=== PATIENT | male | born 1960 | race African-American/Black ===

== ENCOUNTER 2017-04-12 12:24 | Emergency (ER) | payer BC ==
[2017-04-12 12:30] VITALS: BP 120/85
[2017-04-12] MEDS ORDERED: NORCO 10/325 PO ONE (14:07)
[2017-04-12] MEDS ORDERED: TORADOL IM ONE (14:07)
--- NOTE | 2017-04-12 14:10 | Emergency Department Report ---
ED Back Pain/Injury HPI - General Chief Complaint: Back Pain/Injury Stated Complaint: BACK/NECK PAIN Time Seen by Provider: 04/12/17 13:27 Source: patient Limitations: No Limitations - History of Present Illness Initial Comments: 56-year-old male past medical history sciatica, cervical radiculopathy, cardiac arrhythmia, presents with complaint of acute on chronic neck and lower back pain. Patient denies saddle paresthesias denies bladder or bowel incontinence. Patient is fully lucid awake alert and oriented 3. Is ambulatory without assistance. Denies any direct trauma to back or neck. Denies fevers or chills nausea or vomiting. States that these symptoms are consistent with his previous history of chronic back pain. states he has pain consistent with sciatica radiating from his lower back to his right buttock. States he took his prescription for Ultram and Robaxin with minimal relief of his pain at home last night MD Complaint: back pain Onset/Timin -: days(s) Place: home, work, street Radiation: right leg Severity scale (0 -10): 8 Quality: sharp, aching Consistency: intermittent Improves With: immobilization, medication Worsens With: none Context: turning/twisting, bending Associated Symptoms: denies other symptoms - Related Data Home Medications Medication Instructions Recorded Confirmed Last Taken Lisinopril [Zestril] 40 mg PO QDAY 07/09/13 08/20/14 08/19/14 amLODIPine [Norvasc] 5 mg PO DAILY 07/09/13 08/20/14 08/20/14 Previous Rx's Medication Instructions Recorded Last Taken Type Methocarbamol [Robaxin] 750 mg PO BID #14 tab 08/21/14 Unknown Rx Oxycodone HCl/Acetaminophen 1 each PO TID PRN #14 tablet 08/21/14 Unknown Rx [Percocet 7.5-325 mg] Amoxicillin 500 mg PO TID #21 capsule 03/01/16 Unknown Rx Carisoprodol [Soma] 350 mg PO TID PRN #8 tablet 04/12/17 Unknown Rx Naproxen 500 mg PO BID PRN #30 tablet 04/12/17 Unknown Rx Allergies Allergy/AdvReac Type Severity Reaction Status Date / Time No Known Allergies Allergy Verified 04/12/17 12:27 ED Review of Systems ROS: Stated complaint: BACK/NECK PAIN Other details as noted in HPI Constitutional: denies: chills, fever Eyes: denies: eye pain, eye discharge, vision change ENT: denies: ear pain, throat pain Respiratory: denies: cough, shortness of breath, wheezing Cardiovascular: denies: chest pain, palpitations Endocrine: no symptoms reported Gastrointestinal: denies: abdominal pain, nausea, diarrhea Genitourinary: denies: urgency, dysuria Musculoskeletal: back pain (hx of chronic neck and back pain). denies: joint swelling, arthralgia Skin: denies: rash, lesions Neurological: denies: headache, weakness, paresthesias Psychiatric: denies: anxiety, depression Hematological/Lymphatic: denies: easy bleeding, easy bruising ED Past Medical Hx - Past Medical History Hx Hypertension: Yes Additional medical history: sciatica. cardiac arrhythmia - Surgical History Hx Cholecystectomy: Yes (1999) Additional Surgical History: vastectomy,. rotator cuff 2009 - Social History Smoking Status: Current Every Day Smoker Substance Use Type: Alcohol - Medications Home Medications: Home Medications Medication Instructions Recorded Confirmed Last Taken Type Lisinopril [Zestril] 40 mg PO QDAY 07/09/13 08/20/14 08/19/14 History amLODIPine [Norvasc] 5 mg PO DAILY 07/09/13 08/20/14 08/20/14 History Methocarbamol [Robaxin] 750 mg PO BID #14 tab 08/21/14 Unknown Rx Oxycodone HCl/Acetaminophen 1 each PO TID PRN #14 tablet 08/21/14 Unknown Rx [Percocet 7.5-325 mg] Amoxicillin 500 mg PO TID #21 capsule 03/01/16 Unknown Rx Carisoprodol [Soma] 350 mg PO TID PRN #8 tablet 04/12/17 Unknown Rx Naproxen 500 mg PO BID PRN #30 tablet 04/12/17 Unknown Rx ED Physical Exam - General Limitations: No Limitations General appearance: alert, in no apparent distress - Head Head exam: Present: atraumatic, normocephalic - Eye Eye exam: Present: normal appearance, PERRL, EOMI - ENT ENT exam: Present: mucous membranes moist - Neck Neck exam: Present: normal inspection - Respiratory Respiratory exam: Present: normal lung sounds bilaterally. Absent: respiratory distress - Cardiovascular Cardiovascular Exam: Present: regular rate, normal rhythm. Absent: systolic murmur, diastolic murmur, rubs, gallop - GI/Abdominal GI/Abdominal exam: Present: soft, normal bowel sounds - Rectal Rectal exam: Present: deferred - Extremities Exam Extremities exam: Present: normal inspection - Back Exam Back exam: Present: normal inspection, full ROM (back flexion and extension intact no CVA tenderness) - Expanded Back Exam Expanded Back exam: Positive Straight Leg Raise: Right (30 degrees) - Neurological Exam Neurological exam: Present: alert, oriented X3, CN II-XII intact, normal gait - Psychiatric Psychiatric exam: Present: normal affect, normal mood - Skin Skin exam: Present: warm, dry, intact, normal color. Absent: rash ED Course Vital Signs 04/12/17 12:27 Temperature 97.5 F L Pulse Rate 79 Respiratory 18 Rate Blood Pressure 120/85 O2 Sat by Pulse 100 Oximetry ED Medical Decision Making - Medical Decision Making A/P: Acute on chronic neck and back pain secondary to degenerative spinal disease 1-short course of naproxen and Soma 2-follow-up with primary care and orthopedics 3-patient has no clinical signs of cauda equina range of motion fully intact all extremities strength 5 out of 5 all extremities. No reports of bladder or bowel incontinence, patient is fully ambulatory without assistance. I advised him to return to the ED [facility] for any signs of paralysis or severe paresthesias. Patient stated he understood my instructions Critical care attestation.: If time is entered above; I have spent that time in minutes in the direct care of this critically ill patient, excluding procedure time. ED Disposition Clinical Impression: Chronic neck and back pain Chronic back pain Qualifiers: Back pain location: low back pain Back pain laterality: right Sciatica presence : with sciatica Sciatica laterality: sciatica of right side Qualified Code(s): M54.41 - Lumbago with sciatica, right side; G89.29 - Other chronic pain; G89.29 - Other chronic pain Disposition: - TO HOME OR SELFCARE Is pt being admited?: No Does the pt Need Aspirin: No Condition: Stable Instructions: Sciatica (ED), Cervical Radiculopathy (ED) Prescriptions: Carisoprodol [Soma] 350 mg PO TID PRN #8 tablet PRN Reason: Muscle Spasm Naproxen 500 mg PO BID PRN #30 tablet PRN Reason: Pain Referrals: [facility] [Provider Group] - 3-5 Days Forms: Work/School Release Form(ED) Time of Disposition: 15:29
== END 2017-04-12 15:54 | disposition home or self-care (01) ==
LOC: ED 12:24
DX: M54.41 Lumbago with sciatica, right side (principal); M54.2 Cervicalgia; G89.29 Other chronic pain; F17.200 Nicotine dependence, unspecified, uncomplicated; I10 Essential (primary) hypertension; Z90.49 Acquired absence of other specified parts of digestive tract; Z90.79 Acquired absence of other genital organ(s)
CPT/HCPCS: 96372; 99282; J1885

== ENCOUNTER 2017-05-03 16:02 | Emergency (ER) | payer BC ==
[2017-05-03 17:27] VITALS: BP 119/77
--- NOTE | 2017-05-03 17:42 | Emergency Department Report ---
ED ENT HPI - General Chief complaint: Upper Respiratory Infection Stated complaint: SINUS INFECTION Time Seen by Provider: 05/03/17 17:37 Source: patient Mode of arrival: Ambulatory Limitations: No Limitations - History of Present Illness Initial comments: 56-year-old male past medical history sciatica presents with complaint of sinus discomfort and congestion for several days. Patient states he has sinus discharge clear in consistency also complaining of right-sided sinus pressure. Denies fevers chills nausea vomiting. States he has some intermittent mild throat discomfort. Feels that his sinuses are very congested. Denies earache. Patient awake alert and oriented 3 not in acute distress nontoxic appearing. Onset/Timin -: days(s) Location: nose Severity: moderate Quality: aching Consistency: constant Improves with: none Worsens with: none - Related Data Home Medications Medication Instructions Recorded Confirmed Last Taken Lisinopril [Zestril] 40 mg PO QDAY 07/09/13 08/20/14 08/19/14 amLODIPine [Norvasc] 5 mg PO DAILY 07/09/13 08/20/14 08/20/14 Previous Rx's Medication Instructions Recorded Last Taken Type Methocarbamol [Robaxin] 750 mg PO BID #14 tab 08/21/14 Unknown Rx Oxycodone HCl/Acetaminophen 1 each PO TID PRN #14 tablet 08/21/14 Unknown Rx [Percocet 7.5-325 mg] Amoxicillin 500 mg PO TID #21 capsule 03/01/16 Unknown Rx Carisoprodol [Soma] 350 mg PO TID PRN #8 tablet 04/12/17 Unknown Rx Naproxen 500 mg PO BID PRN #30 tablet 04/12/17 Unknown Rx Amoxicillin/Potassium Clav 1 each PO BID #14 tablet 05/03/17 Unknown Rx [Augmentin 875-125 Tablet] Cetirizine HCl [ZyrTEC] 10 mg PO QDAY PRN #1 bottle 05/03/17 Unknown Rx Fluticasone [Flonase] 1 spray NS QDAY PRN #1 bottle 05/03/17 Unknown Rx Ibuprofen [Motrin] 800 mg PO Q8HR PRN #30 tablet 05/03/17 Unknown Rx Allergies Allergy/AdvReac Type Severity Reaction Status Date / Time No Known Allergies Allergy Verified 04/12/17 12:27 ED Dental HPI - General Chief complaint: Upper Respiratory Infection Stated complaint: SINUS INFECTION Time Seen by Provider: 05/03/17 17:37 Source: patient Mode of arrival: Ambulatory Limitations: No Limitations - Related Data Home Medications Medication Instructions Recorded Confirmed Last Taken Lisinopril [Zestril] 40 mg PO QDAY 07/09/13 08/20/14 08/19/14 amLODIPine [Norvasc] 5 mg PO DAILY 07/09/13 08/20/14 08/20/14 Previous Rx's Medication Instructions Recorded Last Taken Type Methocarbamol [Robaxin] 750 mg PO BID #14 tab 08/21/14 Unknown Rx Oxycodone HCl/Acetaminophen 1 each PO TID PRN #14 tablet 08/21/14 Unknown Rx [Percocet 7.5-325 mg] Amoxicillin 500 mg PO TID #21 capsule 03/01/16 Unknown Rx Carisoprodol [Soma] 350 mg PO TID PRN #8 tablet 04/12/17 Unknown Rx Naproxen 500 mg PO BID PRN #30 tablet 04/12/17 Unknown Rx Amoxicillin/Potassium Clav 1 each PO BID #14 tablet 05/03/17 Unknown Rx [Augmentin 875-125 Tablet] Cetirizine HCl [ZyrTEC] 10 mg PO QDAY PRN #1 bottle 05/03/17 Unknown Rx Fluticasone [Flonase] 1 spray NS QDAY PRN #1 bottle 05/03/17 Unknown Rx Ibuprofen [Motrin] 800 mg PO Q8HR PRN #30 tablet 05/03/17 Unknown Rx Allergies Allergy/AdvReac Type Severity Reaction Status Date / Time No Known Allergies Allergy Verified 04/12/17 12:27 ED Review of Systems ROS: Stated complaint: SINUS INFECTION Other details as noted in HPI Constitutional: denies: chills, fever Eyes: denies: eye pain, eye discharge, vision change ENT: congestion, other. denies: ear pain, throat pain Respiratory: denies: cough, shortness of breath, wheezing Cardiovascular: denies: chest pain, palpitations Endocrine: no symptoms reported Gastrointestinal: denies: abdominal pain, nausea, diarrhea Genitourinary: denies: urgency, dysuria Musculoskeletal: denies: back pain, joint swelling, arthralgia Skin: denies: rash, lesions Neurological: denies: headache, weakness, paresthesias Psychiatric: denies: anxiety, depression Hematological/Lymphatic: denies: easy bleeding, easy bruising ED Past Medical Hx - Past Medical History Hx Hypertension: Yes Additional medical history: sciatica. cardiac arrhythmia - Surgical History Hx Cholecystectomy: Yes (1999) Additional Surgical History: vastectomy,. rotator cuff 2009 - Social History Smoking Status: Never Smoker Substance Use Type: None - Medications Home Medications: Home Medications Medication Instructions Recorded Confirmed Last Taken Type Lisinopril [Zestril] 40 mg PO QDAY 07/09/13 08/20/14 08/19/14 History amLODIPine [Norvasc] 5 mg PO DAILY 07/09/13 08/20/14 08/20/14 History Methocarbamol [Robaxin] 750 mg PO BID #14 tab 08/21/14 Unknown Rx Oxycodone HCl/Acetaminophen 1 each PO TID PRN #14 tablet 08/21/14 Unknown Rx [Percocet 7.5-325 mg] Amoxicillin 500 mg PO TID #21 capsule 03/01/16 Unknown Rx Carisoprodol [Soma] 350 mg PO TID PRN #8 tablet 04/12/17 Unknown Rx Naproxen 500 mg PO BID PRN #30 tablet 04/12/17 Unknown Rx Amoxicillin/Potassium Clav 1 each PO BID #14 tablet 05/03/17 Unknown Rx [Augmentin 875-125 Tablet] Cetirizine HCl [ZyrTEC] 10 mg PO QDAY PRN #1 bottle 05/03/17 Unknown Rx Fluticasone [Flonase] 1 spray NS QDAY PRN #1 bottle 05/03/17 Unknown Rx Ibuprofen [Motrin] 800 mg PO Q8HR PRN #30 tablet 05/03/17 Unknown Rx ED Physical Exam - General Limitations: No Limitations ED Course Vital Signs 05/03/17 17:25 Temperature 98 F Pulse Rate 74 Respiratory 18 Rate Blood Pressure 119/77 O2 Sat by Pulse 100 Oximetry ED Medical Decision Making - Medical Decision Making A/P: Acute Sinusitis 1-empiric course of Augmentin, Flonase, Zyrtec, Motrin when necessary 2-follow-up with primary care and ENT 3-I advised patient to return to the ED for any persistent or worsened symptoms or fever or chills and nausea and vomiting with inability to tolerate by mouth. Patient stated he understood my instructions 4- Critical care attestation.: If time is entered above; I have spent that time in minutes in the direct care of this critically ill patient, excluding procedure time. ED Disposition Clinical Impression: Sinusitis, acute Qualifiers: Sinusitis location: frontal Recurrence: non-recurrent Qualified Code(s): J01.10 - Acute frontal sinusitis, unspecified Disposition: TO HOME OR SELFCARE Is pt being admited?: No Does the pt Need Aspirin: No Condition: Stable Instructions: Sinusitis (ED) Prescriptions: Amoxicillin/Potassium Clav [Augmentin 875-125 Tablet] 1 each PO BID #14 tablet Cetirizine HCl [ZyrTEC] 10 mg PO QDAY PRN #1 bottle PRN Reason: Congestion Fluticasone [Flonase] 1 spray NS QDAY PRN #1 bottle PRN Reason: Congestion Ibuprofen [Motrin] 800 mg PO Q8HR PRN #30 tablet PRN Reason: Pain Referrals: HOME DIAZ MD [Staff Physician] - 3-5 Days [facility] [Outside] - 3-5 Days [facility] [Outside] - 3-5 Days Time of Disposition: 17:41
== END 2017-05-03 17:59 | disposition home or self-care (01) ==
LOC: ED 16:02
DX: J01.90 Acute sinusitis, unspecified (principal); I10 Essential (primary) hypertension
CPT/HCPCS: 99282

== ENCOUNTER 2017-11-21 14:27 | Outpatient (CLI) | payer BC ==
[2017-11-21 14:41] LABS: Hematocrit 41.3 % (35.5-45.6); Hemoglobin 13.7 gm/dl (11.8-15.2); Mean Corpuscular HGB Conc 33 % (32-34); Mean Corpuscular Hemoglobin 31 pg (28-32); Mean Corpuscular Volume 92 fl (84-94); Platelet Count 279 K/mm3 (140-440); Red Cell Distribution Width 14.2 % (13.2-15.2)
[2017-11-21 15:10] LABS: Alanine Aminotransferase 13 units/L (7-56); Albumin 4.5 g/dL (3.9-5); BUN/Creatinine Ratio 14; Blood Urea Nitrogen 13 mg/dL (9-20); Calcium 9.2 mg/dL (8.4-10.2); Chol/HDL Ratio 2.45 %; HDL Cholesterol 62 mg/dL (40-59); Hemolysis Index 2; LDL Cholesterol,Direct 87 mg/dL (50-130)
== END 2017-11-21 14:28 | disposition home or self-care (01) ==
LOC: LAB 14:27
PROVIDERS: ATTEND Internal Medicine
DX: I10 Essential (primary) hypertension (principal); E78.5 Hyperlipidemia, unspecified
CPT/HCPCS: 36415; 80053; 80061; 85027

== ENCOUNTER 2018-08-03 20:31 | Emergency (ER) | payer BC ==
[2018-08-03 20:40] VITALS: BP 143/84
--- NOTE | 2018-08-03 20:49 | Emergency Department Report ---
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 The patient presents to the emergency room with a complaint of dental pain, over tooth #3. The patient has a chronically fractured tooth, saw a dentist a few months ago, for pain, which had subsequently resolved. He presents with a recurrence of throbbing burning aching sharp pain over tooth #3. This pain moves into the maxillary area of the face. It increases with hot, cold, chewing. No other complaints. Of note, patient taking tramadol at home, prescribed by his physician, 50 mg, every 8 hours, with superimposed ibuprofen, and he reports inadequate analgesia at this time. MD complaint: tooth pain -: Gradual, days(s) Location: tooth # (3) Severity: moderate Quality: aching Consistency: intermittent Improves with: other Worsens with: other Context- Dental: other Associated Symptoms: toothache. denies: fever, cough, pain with swallowing, sore throat, tinnitus, hearing loss, discharge from ear, rhinorrhea - Related Data Home Medications Medication Instructions Recorded Confirmed Last Taken Lisinopril [Zestril] 40 mg PO QDAY 07/09/13 08/20/14 08/19/14 amLODIPine [Norvasc] 5 mg PO DAILY 07/09/13 08/20/14 08/20/14 Previous Rx's Medication Instructions Recorded Last Taken Type Methocarbamol [Robaxin] 750 mg PO BID #14 tab 08/21/14 Unknown Rx Oxycodone HCl/Acetaminophen 1 each PO TID PRN #14 tablet 08/21/14 Unknown Rx [Percocet 7.5-325 mg] Amoxicillin 500 mg PO TID #21 capsule 03/01/16 Unknown Rx Carisoprodol [Soma] 350 mg PO TID PRN #8 tablet 04/12/17 Unknown Rx Naproxen 500 mg PO BID PRN #30 tablet 04/12/17 Unknown Rx Amoxicillin/Potassium Clav 1 each PO BID #14 tablet 05/03/17 Unknown Rx [Augmentin 875-125 Tablet] Cetirizine HCl [ZyrTEC] 10 mg PO QDAY PRN #1 bottle 05/03/17 Unknown Rx Fluticasone [Flonase] 1 spray NS QDAY PRN #1 bottle 05/03/17 Unknown Rx Ibuprofen [Motrin] 800 mg PO Q8HR PRN #30 tablet 05/03/17 Unknown Rx traMADol [Ultram 50 MG tab] 50 mg PO Q8HR PRN #20 tablet 11/30/17 Unknown Rx Tramadol HCl [Ultram] 50 mg PO TID #90 tablet 03/01/18 Unknown Rx Chlorhexidine Mouthwash [Peridex] 15 ml MM BID #1 bottle 08/03/18 Unknown Rx Ibuprofen [Motrin] 600 mg PO Q8H PRN #20 tablet 08/03/18 Unknown Rx oxyCODONE /ACETAMINOPHEN [Percocet 1 tab PO Q6HR PRN #6 tablet 08/03/18 Unknown Rx 5/325] Allergies Allergy/AdvReac Type Severity Reaction Status Date / Time No Known Allergies Allergy Verified 03/01/18 15:40 ED Dental HPI - General Chief complaint: Dental/Oral Stated complaint: TOOTHACHE Time Seen by Provider: 08/03/18 20:49 Source: patient Mode of arrival: Ambulatory Limitations: No Limitations - Related Data Home Medications Medication Instructions Recorded Confirmed Last Taken Lisinopril [Zestril] 40 mg PO QDAY 07/09/13 08/20/14 08/19/14 amLODIPine [Norvasc] 5 mg PO DAILY 07/09/13 08/20/14 08/20/14 Previous Rx's Medication Instructions Recorded Last Taken Type Methocarbamol [Robaxin] 750 mg PO BID #14 tab 08/21/14 Unknown Rx Oxycodone HCl/Acetaminophen 1 each PO TID PRN #14 tablet 08/21/14 Unknown Rx [Percocet 7.5-325 mg] Amoxicillin 500 mg PO TID #21 capsule 03/01/16 Unknown Rx Carisoprodol [Soma] 350 mg PO TID PRN #8 tablet 04/12/17 Unknown Rx Naproxen 500 mg PO BID PRN #30 tablet 04/12/17 Unknown Rx Amoxicillin/Potassium Clav 1 each PO BID #14 tablet 05/03/17 Unknown Rx [Augmentin 875-125 Tablet] Cetirizine HCl [ZyrTEC] 10 mg PO QDAY PRN #1 bottle 05/03/17 Unknown Rx Fluticasone [Flonase] 1 spray NS QDAY PRN #1 bottle 05/03/17 Unknown Rx Ibuprofen [Motrin] 800 mg PO Q8HR PRN #30 tablet 05/03/17 Unknown Rx traMADol [Ultram 50 MG tab] 50 mg PO Q8HR PRN #20 tablet 11/30/17 Unknown Rx Tramadol HCl [Ultram] 50 mg PO TID #90 tablet 03/01/18 Unknown Rx Chlorhexidine Mouthwash [Peridex] 15 ml MM BID #1 bottle 08/03/18 Unknown Rx Ibuprofen [Motrin] 600 mg PO Q8H PRN #20 tablet 08/03/18 Unknown Rx oxyCODONE /ACETAMINOPHEN [Percocet 1 tab PO Q6HR PRN #6 tablet 08/03/18 Unknown Rx 5/325] Allergies Allergy/AdvReac Type Severity Reaction Status Date / Time No Known Allergies Allergy Verified 03/01/18 15:40 ED Review of Systems ROS: Stated complaint: TOOTHACHE Other details as noted in HPI Constitutional: denies: fever Eyes: denies: eye discharge ENT: dental pain Respiratory: denies: cough Cardiovascular: denies: chest pain Gastrointestinal: denies: abdominal pain Musculoskeletal: denies: back pain Neurological: denies: headache ED Past Medical Hx - Past Medical History Previous Medical History?: Yes Hx Hypertension: Yes Hx of Cancer: Yes (Prostate) Additional medical history: sciatica,DJD, Elevated cholesterol,. cardiac arrhythmia - Surgical History Hx Cholecystectomy: Yes (1999) Additional Surgical History: vastectomy,. rotator cuff 2009 - Social History Smoking Status: Never Smoker - Medications Home Medications: Home Medications Medication Instructions Recorded Confirmed Last Taken Type Lisinopril [Zestril] 40 mg PO QDAY 07/09/13 08/20/14 08/19/14 History amLODIPine [Norvasc] 5 mg PO DAILY 07/09/13 08/20/14 08/20/14 History Methocarbamol [Robaxin] 750 mg PO BID #14 tab 08/21/14 Unknown Rx Oxycodone HCl/Acetaminophen 1 each PO TID PRN #14 tablet 08/21/14 Unknown Rx [Percocet 7.5-325 mg] Amoxicillin 500 mg PO TID #21 capsule 03/01/16 Unknown Rx Carisoprodol [Soma] 350 mg PO TID PRN #8 tablet 04/12/17 Unknown Rx Naproxen 500 mg PO BID PRN #30 tablet 04/12/17 Unknown Rx Amoxicillin/Potassium Clav 1 each PO BID #14 tablet 05/03/17 Unknown Rx [Augmentin 875-125 Tablet] Cetirizine HCl [ZyrTEC] 10 mg PO QDAY PRN #1 bottle 05/03/17 Unknown Rx Fluticasone [Flonase] 1 spray NS QDAY PRN #1 bottle 05/03/17 Unknown Rx Ibuprofen [Motrin] 800 mg PO Q8HR PRN #30 tablet 05/03/17 Unknown Rx traMADol [Ultram 50 MG tab] 50 mg PO Q8HR PRN #20 tablet 11/30/17 Unknown Rx Tramadol HCl [Ultram] 50 mg PO TID #90 tablet 03/01/18 Unknown Rx Chlorhexidine Mouthwash [Peridex] 15 ml MM BID #1 bottle 08/03/18 Unknown Rx Ibuprofen [Motrin] 600 mg PO Q8H PRN #20 tablet 08/03/18 Unknown Rx oxyCODONE /ACETAMINOPHEN [Percocet 1 tab PO Q6HR PRN #6 tablet 08/03/18 Unknown Rx 5/325] ED Physical Exam - General Limitations: No Limitations General appearance: alert, in no apparent distress - Head Head exam: Present: atraumatic, normocephalic - Eye Eye exam: Present: normal appearance, EOMI. Absent: nystagmus - ENT ENT exam: Present: normal exam, normal orophraynx, mucous membranes moist, normal external ear exam, other (chronic fracture appreciated over tooth #3. There is no stridor, trismus, malocclusion. There is no elevation of the base of the tongue.) - Neck Neck exam: Present: normal inspection, full ROM. Absent: tenderness, meningismus - Respiratory Respiratory exam: Present: normal lung sounds bilaterally. Absent: respiratory distress - Cardiovascular Cardiovascular Exam: Present: regular rate, normal rhythm, normal heart sounds. Absent: bradycardia, tachycardia, irregular rhythm, systolic murmur, diastolic murmur, rubs, gallop - GI/Abdominal GI/Abdominal exam: Present: soft. Absent: distended, tenderness, guarding, rebound, rigid, pulsatile mass - Rectal Rectal exam: Present: deferred - Extremities Exam Extremities exam: Present: normal inspection, full ROM, other (moving 4 extremities spontaneously without difficulty) - Back Exam Back exam: Present: normal inspection, full ROM - Neurological Exam Neurological exam: Present: alert, normal gait, other (there is no facial droop. The tongue is midline. Extraocular movements are intact bilaterally. Bilateral 5 strength in 4 extremities. Walking with a steady gait.) - Psychiatric Psychiatric exam: Present: normal affect, normal mood - Skin Skin exam: Present: warm, dry, intact, normal color. Absent: rash ED Course Vital Signs 08/03/18 08/03/18 20:32 20:34 Temperature 97.7 F 97.7 F Pulse Rate 78 78 Respiratory 18 18 Rate Blood Pressure 143/83 143/84 O2 Sat by Pulse 96 96 Oximetry - Reevaluation(s) Reevaluation #1: 08/03/18 20:49 ga design consultant aware Filled ID Written Drug QTY Days Prescriber Rx # Pharmacy * Refills Daily Dose Pymt Type [facility]OR 07/23/2018 1 05/27/2018 ZOLPIDEM TARTRATE 10 MG TABLET 30.0 30 OL AYE [id number] [facility] ([id number]) 2 Comm Ins [place] 07/23/2018 1 05/27/2018 TRAMADOL HCL 50 MG TABLET 90.0 30 OL AYE [id number] [facility] ([id number]) 2 15.0 MME Com Reevaluation #2: 08/03/18 20:59 Differential diagnosis, including not limited to: Acute on chronic dentalgia, dental caries Assessment and plan: 57-year-old gentleman with dentalgia. Patient is chronically on tramadol, for chronic muscle skeletal back pain, has been taking this, in addition to ibuprofen, and is still having pain. There is no pus, streaking or abscess. I informed patient that we would write a very short course of Percocet, he will be given chlorhexidine prescription, and he is instructed to follow-up with an outpatient dentist for further evaluation and management. The patient verbalized understanding. ED Medical Decision Making - Lab Data Vital Signs 08/03/18 08/03/18 20:32 20:34 Temperature 97.7 F 97.7 F Pulse Rate 78 78 Respiratory 18 18 Rate Blood Pressure 143/83 143/84 O2 Sat by Pulse 96 96 Oximetry Critical care attestation.: If time is entered above; I have spent that time in minutes in the direct care of this critically ill patient, excluding procedure time. ED Disposition Clinical Impression: Dentalgia Disposition: TO HOME OR SELFCARE Is pt being admited?: No Does the pt Need Aspirin: No Condition: Stable Instructions: Toothache (ED) Additional Instructions: Take the medications as needed/directed. If taking Percocet, do not combine with tramadol, Ambien, alcohol, do not drive or operate motor vehicles, and do not make important decisions when taking this medication. Follow up with a dentist within the next 7-10 days for further outpatient care for acute on chronic dental pain. Return to the emergency room right away with new, worsening or different symptoms. Referrals: [facility] [Outside] - 3-5 Days
[2018-08-03] MEDS ORDERED: IBUPROFEN PO ONE (20:56)
[2018-08-03] MEDS ORDERED: TYLENOL PO ONE (20:56)
== END 2018-08-03 21:35 | disposition home or self-care (01) ==
LOC: ED 20:31
DX: K08.89 Other specified disorders of teeth and supporting structures (principal); I10 Essential (primary) hypertension; E78.00 Pure hypercholesterolemia, unspecified; Z90.49 Acquired absence of other specified parts of digestive tract; Z98.52 Vasectomy status
CPT/HCPCS: 99282

== ENCOUNTER 2018-08-21 14:07 | Outpatient (CLI) | payer BC ==
[2018-08-21 14:29] LABS: Basophils % (Auto) 0.8 % (0.0-1.8); Eosinophils # (Auto) 0.3 K/mm3 (0.0-0.4); Eosinophils % (Auto) 5.2 % (0.0-4.3); Hematocrit 39.5 % (35.5-45.6); Lymphocytes # (Auto) 1.8 K/mm3 (1.2-5.4); Lymphocytes % (Auto) 32.3 % (13.4-35.0); Mean Corpuscular HGB Conc 33 % (32-34); Mean Corpuscular Volume 92 fl (84-94); Monocytes # (Auto) 0.4 K/mm3 (0.0-0.8); Monocytes % (Auto) 6.8 % (0.0-7.3); Platelet Count 314 K/mm3 (140-440); Red Blood Count 4.31 M/mm3 (3.65-5.03); Red Cell Distribution Width 14.4 % (13.2-15.2)
[2018-08-21 14:47] LABS: Alanine Aminotransferase 11 units/L (7-56); Albumin 4.2 g/dL (3.9-5); BUN/Creatinine Ratio 17; Blood Urea Nitrogen 15 mg/dL (9-20); Hemolysis Index 15
== END 2018-08-21 14:08 | disposition home or self-care (01) ==
LOC: LAB 14:07
PROVIDERS: ATTEND Internal Medicine
DX: Z00.00 Encounter for general adult medical examination without abnormal findings (principal); I10 Essential (primary) hypertension; Z90.49 Acquired absence of other specified parts of digestive tract
CPT/HCPCS: 36415; 80053; 83690; 84153; 85025

== ENCOUNTER 2019-10-08 14:26 | Outpatient (CLI) | payer BC ==
[2019-10-08 14:53] LABS: Basophils # (Auto) 0.1 K/mm3 (0.0-0.1); Basophils % (Auto) 0.9 % (0.0-1.8); Eosinophils # (Auto) 0.6 K/mm3 (0.0-0.4); Hematocrit 40.5 % (35.5-45.6); Hemoglobin 13.4 gm/dl (11.8-15.2); Lymphocytes # (Auto) 2.1 K/mm3 (1.2-5.4); Lymphocytes % (Auto) 32.4 % (13.4-35.0); Mean Corpuscular HGB Conc 33 % (32-34); Mean Corpuscular Volume 91 fl (84-94); Monocytes # (Auto) 0.8 K/mm3 (0.0-0.8); Platelet Count 304 K/mm3 (140-440); Red Blood Count 4.47 M/mm3 (3.65-5.03); Red Cell Distribution Width 14.6 % (13.2-15.2)
[2019-10-08 15:18] LABS: Alanine Aminotransferase 33 units/L (7-56); Albumin 4.5 g/dL (3.9-5); BUN/Creatinine Ratio 18; Blood Urea Nitrogen 18 mg/dL (9-20); Calcium 9.2 mg/dL (8.4-10.2); Chol/HDL Ratio 3.43 %; HDL Cholesterol 53 mg/dL (40-59); Hemolysis Index 13; LDL Cholesterol,Direct 121 mg/dL (50-130)
== END 2019-10-08 14:27 | disposition home or self-care (01) ==
LOC: LAB 14:26
PROVIDERS: ATTEND Internal Medicine
DX: I10 Essential (primary) hypertension (principal)
CPT/HCPCS: 36415; 80053; 80061; 84153; 85025

== ENCOUNTER 2020-05-10 15:27 | Outpatient (CLI) | payer BC ==
--- NOTE | 2020-05-10 16:18 | XRay Report ---
Lumbar spine 4 views INDICATION: Back pain FINDINGS: Alignment appears normal. There are endplate changes with anterior and posterior disc osteo phytes at several levels. Facet arthropathy at L4-L5 and L5-S1. Sacrum and sacroiliac joints appear n ormal. IMPRESSION: Discogenic degenerative changes seen throughout the lumbar spine. Signer Name: Kory Rivas MD Signed: 05/10/2020 4:14 PM Workstation Name: [id number]
== END 2020-05-10 15:28 | disposition home or self-care (01) ==
LOC: XRAY 15:27
PROVIDERS: ATTEND Orthopaedic Surgery
DX: M47.816 Spondylosis without myelopathy or radiculopathy, lumbar region (principal)
CPT/HCPCS: 72110

== ENCOUNTER 2020-06-10 13:00 | Outpatient (CLI) | payer BC ==
--- NOTE | 2020-06-10 14:11 | Magnetic Resonance Report ---
MRI lumbar spine without contrast INDICATION: Back pain TECHNIQUE: Axial sagittal images FINDINGS: Alignment appears normal. No marrow replacement process. Conus appears normal. L1-L2: Mild facet change without spinal canal narrowing or neuroforaminal narrowing. L2-L3: Endplate change and disc desiccation. Posterior disc osteophyte with far lateral disc protrusi on/herniations. There is mild bilateral lateral recess narrowing. No severe neuroforaminal narrowing. L3-L4: Endplate change and disc desiccation posterior disc bulge/protrusion. Mild right lateral reces s narrowing with mild right neuroforaminal narrowing. No significant left neuroforaminal narrowing. L4-L5: Endplate change. Right lateral disc protrusion/herniation with [id number] right lateral recess narrowing and mild right neuroforaminal narrowing. L5-S1: No spinal canal narrowing or neuroforaminal narrowing. IMPRESSION: Multilevel discogenic degenerative change. Please see above level by level discussion. Endplate poole es are seen throughout. Signer Name: Kory Rivas MD Signed: 06/10/2020 2:07 PM Workstation Name: [id number]
== END 2020-06-10 13:01 | disposition home or self-care (01) ==
LOC: MRI 13:00
PROVIDERS: ATTEND Physician Assistant Medical
DX: M47.816 Spondylosis without myelopathy or radiculopathy, lumbar region (principal); M51.36 Other intervertebral disc degeneration, lumbar region; M25.78 Osteophyte, vertebrae
CPT/HCPCS: 72148

== ENCOUNTER 2020-10-29 15:13 | Outpatient (CLI) | payer BC ==
[2020-10-29 15:38] LABS: Basophils % (Auto) 0.8 % (0.0-1.8); Eosinophils # (Auto) 0.4 K/mm3 (0.0-0.4); Eosinophils % (Auto) 6.4 % (0.0-4.3); Hematocrit 38.1 % (35.5-45.6); Hemoglobin 12.5 gm/dl (11.8-15.2); Lymphocytes # (Auto) 2.3 K/mm3 (1.2-5.4); Mean Corpuscular HGB Conc 33 % (32-34); Mean Corpuscular Volume 89 fl (84-94); Monocytes # (Auto) 0.6 K/mm3 (0.0-0.8); Monocytes % (Auto) 9.6 % (0.0-7.3); Platelet Count 306 K/mm3 (140-440); Red Blood Count 4.29 M/mm3 (3.65-5.03); Red Cell Distribution Width 15.2 % (13.2-15.2)
[2020-10-29 16:05] LABS: Alanine Aminotransferase 10 units/L (7-56); Albumin 4.6 g/dL (3.9-5); BUN/Creatinine Ratio 23; Blood Urea Nitrogen 18 mg/dL (9-20); Calcium 9.4 mg/dL (8.4-10.2); Chol/HDL Ratio 4.48 %; HDL Cholesterol 49 mg/dL (40-59); Hemolysis Index 4; LDL Cholesterol,Direct 142 mg/dL (50-130)
== END 2020-10-29 15:14 | disposition home or self-care (01) ==
LOC: LAB 15:13
PROVIDERS: ATTEND Internal Medicine
DX: Z12.5 Encounter for screening for malignant neoplasm of prostate (principal); I10 Essential (primary) hypertension
CPT/HCPCS: 36415; 80053; 80061; 84153; 85025

== ENCOUNTER 2021-03-05 15:03 | Emergency (ER) | payer BC ==
--- NOTE | 2021-03-05 15:45 | Emergency Department Report ---
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 Patient states that he put his finger in a finger splint. States that today the pain is worse since turning blue and swelling. Patient comes in seeking care. ED Review of Systems ROS: Stated complaint: FINGER Other details as noted in HPI Comment: All other systems reviewed and negative ED Past Medical Hx - Past Medical History Hx Hypertension: Yes Hx Arthritis: Yes Additional medical history: sciatica,DJD, Elevated cholesterol,. cardiac arrhythmia - Surgical History Hx Cholecystectomy: Yes (1999) Additional Surgical History: vastectomy,. rotator cuff 2009 - Social History Smoking Status: Never Smoker - Medications Home Medications: Home Medications Medication Instructions Recorded Confirmed Last Taken Type Lisinopril [Zestril] 40 mg PO QDAY 07/09/13 08/20/14 08/19/14 History amLODIPine [Norvasc] 5 mg PO DAILY 07/09/13 08/20/14 08/20/14 History Oxycodone HCl/Acetaminophen 1 each PO TID PRN #14 tablet 08/21/14 Unknown Rx [Percocet 7.5-325 mg] methOCARBAMOL [Robaxin] 750 mg PO BID #14 tab 08/21/14 Unknown Rx Amoxicillin 500 mg PO TID #21 capsule 03/01/16 Unknown Rx Naproxen 500 mg PO BID PRN #30 tablet 04/12/17 Unknown Rx carisoprodoL [Soma] 350 mg PO TID PRN #8 tablet 04/12/17 Unknown Rx Amoxicillin/Potassium Clav 1 each PO BID #14 tablet 05/03/17 Unknown Rx [Augmentin 875-125 Tablet] Cetirizine HCl [ZyrTEC] 10 mg PO QDAY PRN #1 bottle 05/03/17 Unknown Rx Fluticasone [Flonase] 1 spray NS QDAY PRN #1 bottle 05/03/17 Unknown Rx Ibuprofen [Motrin] 800 mg PO Q8HR PRN #30 tablet 05/03/17 Unknown Rx traMADoL [Ultram 50 MG tab] 50 mg PO Q8HR PRN #20 tablet 11/30/17 Unknown Rx Tramadol HCl [Ultram] 50 mg PO TID #90 tablet 03/01/18 Unknown Rx Chlorhexidine Mouthwash [Peridex] 15 ml MM BID #1 bottle 08/03/18 Unknown Rx Ibuprofen [Motrin] 600 mg PO Q8H PRN #20 tablet 08/03/18 Unknown Rx oxyCODONE /ACETAMINOPHEN [Percocet 1 tab PO Q6HR PRN #6 tablet 08/03/18 Unknown Rx 5/325] HYDROcodone/APAP 7.5-325 [[place] 1 each PO Q6HR PRN #12 tablet 03/05/21 Unknown Rx 7.5/325] Ibuprofen [Motrin 800 MG tab] 800 mg PO Q8HR PRN #21 tablet 03/05/21 Unknown Rx Upper Extremity Exam - Exam General: Vital signs noted. No distress. Alert and acting appropriately. ED Course Vital Signs 03/05/21 15:37 Temperature 97.4 F L Pulse Rate 79 Respiratory 18 Rate O2 Sat by Pulse 99 Oximetry ED Medical Decision Making - Radiology Data Radiology results: report reviewed [address] [address] XRay Report Signed Patient: PEGGY ALBERTO MR#: [id number] 13 : 1960 Acct:[id number] Age/Sex: 60 / M ADM Date: 03/05/21 Loc: ED Attending Dr: Ordering Physician: CAYETANO MCCLAIN Date of Service: 03/05/21 Procedure(s): XR finger(s) 2+V RT Accession Number(s): [id number] cc: CAYETANO MCCLAIN Fluoro Time In Minutes: Right ring finger, 3 views HISTORY: Pain COMPARISON: None FINDINGS: There is an acute avulsion type fracture of the dorsal base of the right ring finger distal phalanx (mallet finger). No additional fracture. No joint subluxation. 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 Patient states that he put his finger in a finger splint. States that today the pain is worse since turning blue and swelling. Patient comes in seeking care. X-ray ordered for right finger Critical care attestation.: If time is entered above; I have spent that time in minutes in the direct care of this critically ill patient, excluding procedure time. ED Disposition Clinical Impression: Fracture of phalanx of right middle finger Disposition: HOME / SELF CARE / HOMELESS Is pt being admited?: No Does the pt Need Aspirin: No Condition: Stable Instructions: Cast or Splint Care, Adult, [id number], Finger Fracture, Adult, [id number] Additional Instructions: X-ray shows you have a avulsion fracture to your right ring finger. Please wear splint pain medication as needed and follow-up with an orthopedic provider. Prescriptions: Ibuprofen [Motrin 800 MG tab] 800 mg PO Q8HR PRN #21 tablet PRN Reason: Pain , Severe (7-10) HYDROcodone/APAP 7.5-325 [[place] 7.5/325] 1 each PO Q6HR PRN #12 tablet PRN Reason: Pain Referrals: SNEHAL CHAPMAN MD [Staff Physician] - 3-5 Days Forms: Work/School Release Form(ED) Time of Disposition: 16:46
--- NOTE | 2021-03-05 16:16 | XRay Report ---
Right ring finger, 3 views HISTORY: Pain COMPARISON: None FINDINGS: There is an acute avulsion type fracture of the dorsal base of the right ring finger distal phalanx (mallet finger). No additional fracture. No joint subluxation. Signer Name: Darius Mccabe MD Signed: 03/05/2021 4:11 PM Workstation Name: [id number]
== END 2021-03-05 17:25 | disposition home or self-care (01) ==
LOC: ED 15:03
DX: S62.634A Displaced fracture of distal phalanx of right ring finger, initial encounter for closed fracture (principal); I10 Essential (primary) hypertension; M19.90 Unspecified osteoarthritis, unspecified site; E78.00 Pure hypercholesterolemia, unspecified; Z90.89 Acquired absence of other organs; X58.XXXA Exposure to other specified factors, initial encounter; Y93.9 Activity, unspecified; Y92.89 Other specified places as the place of occurrence of the external cause; Y99.0 Civilian activity done for income or pay
CPT/HCPCS: 99283

== ENCOUNTER 2021-05-02 13:17 | Outpatient (CLI) | payer BC ==
--- NOTE | 2021-05-02 15:07 | Magnetic Resonance Report ---
MRI lumbar spine without contrast INDICATION: Low back pain TECHNIQUE: Axial sagittal images COMPARISON: June 10, 2020 FINDINGS: Alignment appears normal. No marrow replacement process. L1-L2: Normal L2-L3: Disc desiccation endplate change. There is a broad-based posterior disc bulge with far lateral disc bulge/protrusions. Mild bilateral lateral recess narrowing and neuroforaminal narrowing. Mild e ffacement anterior canal without severe canal narrowing. L3-L4: Endplate change and disc desiccation. Broad-based posterior disc bulge slightly asymmetric to the right. Mild to moderate right lateral recess narrowing with mild right neuroforaminal narrowing. Mild left lateral recess narrowing. Mild canal narrowing L4-L5: Disc desiccation with broad-based posterior disc bulge. There is a far right lateral disc bulg e/protrusion with moderate right lateral recess narrowing and right neuroforaminal narrowing. Mild ca nal narrowing. L5-S1: No spinal canal narrowing or neuroforaminal narrowing. IMPRESSION: Multilevel discogenic degenerative change. Findings appear similar to prior examination. Please see a max level by level description. Signer Name: Kory Rivas MD Signed: 05/02/2021 3:03 PM Workstation Name: [id number]
== END 2021-05-02 13:18 | disposition home or self-care (01) ==
LOC: MRI 13:17
PROVIDERS: ATTEND Nurse Practitioner
DX: M51.26 Other intervertebral disc displacement, lumbar region (principal); M48.061 Spinal stenosis, lumbar region without neurogenic claudication
CPT/HCPCS: 72148

== ENCOUNTER 2021-07-20 18:10 | Outpatient (CLI) | payer BC ==
[2021-07-20 19:03] LABS: Basophils % (Auto) 0.4 % (0.0-1.8); Eosinophils # (Auto) 0.4 K/mm3 (0.0-0.4); Eosinophils % (Auto) 4.9 % (0.0-4.3); Hematocrit 38.4 % (35.5-45.6); Hemoglobin 12.5 gm/dl (11.8-15.2); Lymphocytes # (Auto) 2.2 K/mm3 (1.2-5.4); Lymphocytes % (Auto) 29.2 % (13.4-35.0); Mean Corpuscular HGB Conc 33 % (32-34); Mean Corpuscular Volume 91 fl (84-94); Monocytes # (Auto) 0.7 K/mm3 (0.0-0.8); Monocytes % (Auto) 8.7 % (0.0-7.3); Platelet Count 366 K/mm3 (140-440); Red Blood Count 4.21 M/mm3 (3.65-5.03); Red Cell Distribution Width 13.5 % (13.2-15.2)
[2021-07-20 19:24] LABS: Alanine Aminotransferase 12 units/L (7-56); Albumin 4.7 g/dL (3.9-5); BUN/Creatinine Ratio 19; Blood Urea Nitrogen 17 mg/dL (9-20); Calcium 9.5 mg/dL (8.4-10.2); Hemolysis Index 8
[2021-07-24 12:16] LABS: Vitamin D, 25-OH, D2 <4 ng/mL
== END 2021-07-20 18:11 | disposition home or self-care (01) ==
LOC: LAB 18:10
PROVIDERS: ATTEND Internal Medicine
DX: Z12.5 Encounter for screening for malignant neoplasm of prostate (principal); M54.9 Dorsalgia, unspecified; E78.00 Pure hypercholesterolemia, unspecified; I10 Essential (primary) hypertension
CPT/HCPCS: 36415; 80053; 82306; 84402; 85025